=== PATIENT | male | born 1950 | race Caucasian/White ===

== ENCOUNTER 2018-09-02 13:15 | Emergency (ER) | payer SELFPAY | END 2018-09-02 16:05 | disposition home or self-care (01) | LOC: ERS 13:15 | DX: S82.842A Displaced bimalleolar fracture of left lower leg, initial encounter for closed fracture (principal); W11.XXXA Fall on and from ladder, initial encounter | CPT/HCPCS: 27808 ==

== ENCOUNTER 2018-09-06 14:51 | Outpatient (CLI) | payer SELFPAY ==
[2018-09-06 16:10] LABS: Anion Gap 15 mmol/L (10-20); BUN (Urea Nitrogen) 19 mg/dL (8.4-25.7); Calc. Creatinine Clearance 0 mL/min (70-130); Carbon Dioxide 26 mmol/L (23-31); Chloride 100 mmol/L (98-107); Estimated GFR-MDRD Greater than 90; Glucose 115 mg/dL (80-115); Potassium 3.9 mmol/L (3.5-5.1); Sodium 137 mmol/L (136-145)
== END 2018-09-06 14:52 | disposition home or self-care (01) ==
LOC: LABBT 14:51
PROVIDERS: ATTEND Orthopaedic Surgery
DX: Z01.818 Encounter for other preprocedural examination (principal); S82.52XA Displaced fracture of medial malleolus of left tibia, initial encounter for closed fracture
CPT/HCPCS: 80048; 93005; 93010

== ENCOUNTER 2018-09-08 13:15 | Day surgery (SDC) | payer MEDICAID, OTHER, SELFPAY ==
[2018-09-06 14:24] VITALS: BMI 21.7
[~2018-09-08 13:15] MED LIST: Lidocaine 1% PF 5 ML VIAL ONE; Ondansetron PF 4 MG/2 ML Vial ONE; PROPOFOL 200 MG/20 ML VIAL ONE; diphenhydrAMINE 50 MG/ML VIAL ONE
--- NOTE | 2018-09-08 18:02 | RAD ---
THRE VIEWS OF THE LEFT ANKLE: 09/08/18 HISTORY: ORIF of left ankle. FINDINGS/IMPRESSION: Three views of the left ankle shows the patient to be status post percutaneous screw fixation of a m edial malleolus fracture. No perihardware lucency is seen. There is normal alignment of the ankle mor tise. POS: C
--- NOTE | 2018-09-09 09:09 | OP ---
DATE OF PROCEDURE: 09/08/2018 PREOPERATIVE DIAGNOSIS: Left medial malleolus fracture. POSTOPERATIVE DIAGNOSIS: Left medial malleolus fracture. PROCEDURE PERFORMED: Open reduction and internal fixation of left medial malleolus. ANESTHESIA: General. TOURNIQUET TIME: Approximately 15 minutes at 300 mmHg. IMPLANTS: Synthes 4.0-mm partially-threaded cancellous screws x2. COMPLICATIONS: None. DRAINS: None. SPECIMEN: None. OUTCOME: Near-anatomic alignment. INDICATIONS FOR PROCEDURE: The patient is a pleasant 68-year-old gentleman, status post fall sustaining a left medial malleolar fracture. This fracture is displaced, and as such, we recommended proceeding with open reduction and internal fixation. Informed consent has been obtained. I believe all questions have been answered. DESCRIPTION OF PROCEDURE: After the induction of the general anesthesia, the patient was positioned supine on the OR table, and then a sterile prep and drape was performed of the left lower extremity. Next, a vertical incision was made centered over the medial malleolus after skin was sharply incised. Dissection was carried down bluntly, revealing the fracture. Periosteum was freed from the fracture edges, and the fracture reduced and held in place with a bone tenaculum. This was then followed by insertion of two 4.0-mm partially-threaded cancellous screws from the tip of the medial malleolus obliquely across the fracture and up into the distal tibial metaphyseal bone. Once positioned, compression was able to be delivered to the fracture edges, and then final AP and lateral C-arm images obtained, that showed anatomic alignment. The wound was then irrigated with bulb syringe, closed in layers with 2-0 Vicryl followed by 4-0 nylon for the skin. Xeroform gauze, Webril and fiberglass splint were then applied to the ankle, and then the patient was transferred to recovery room in stable condition. Tourniquet was let down at the completion of dressing. There were no complications. He tolerated the procedure well. Job ID: [id number]
== END 2018-09-08 20:30 | disposition home or self-care (01) ==
LOC: SDC 13:15
PROVIDERS: ATTEND Orthopaedic Surgery
PROC: 0QSH04Z Reposition Left Tibia with Internal Fixation Device, Open Approach (ICD-10-PCS; principal; 2018-09-08)
DX: S82.52XA Displaced fracture of medial malleolus of left tibia, initial encounter for closed fracture (principal); Z79.84 Long term (current) use of oral hypoglycemic drugs; Z79.899 Other long term (current) drug therapy; W11.XXXA Fall on and from ladder, initial encounter
CPT/HCPCS: 76000; C1713; J1200; J2001; J2405; J2704